=== PATIENT | female | born 1975 | race Caucasian/White ===

== ENCOUNTER 2017-06-04 17:02 | Emergency (ER) | payer MEDICAID ==
[~2017-06-04] VITALS: Ht 162.6 cm; Wt 105.2 kg
[~2017-06-04 17:02] MED LIST: COREG12.5 MG PO; LASIX20 MG PO; LOPRESSOR 50 MG50 MG PO; LORTAB 5/500 501 TAB PO; MOTRIN600 MG PO; NAPROSYN 500MG500 MG PO; PERCOCET 10 MG1 EACH PO; PHENERGAN 25MG.25 M1 PO; POTASSIUM CHLO10 ME3 PO; PROVERA10 MG PO; SYNTHROID0.112 MG PO; Tramadol HCl50 MG PO; VICODIN 5/500 T1 TAB PO
[2017-06-04] MEDS ORDERED: GABAPENTIN800 MG PO (17:50)
[2017-06-04] MEDS ORDERED: LISINOPRIL40 MG PO (17:50)
[2017-06-04] MEDS ORDERED: SUBOXONE 8 MG-21 FIL PO (17:51)
--- NOTE | 2017-06-04 18:00 | [facility] Report ---
History of Present Issue Date/Time Seen by Provider 06/04/17 8893 Visit Reason Pt arrived:Walked Presenting Problem:PT HAS SORES ON THE TOPS OF BOTH FEET BY 3-4 TOES. SHE HAS BEEN SEEN BY HER PCP SEVERAL TIMES. RT FOOT 4-5 MONTHS AND LT FOOT 2 WEEKS. SWELLING IN NOTED TO BOTH FEET AND LOWER LEG AREA. PT'S BP IS ELEVATED AND SHE STATES SHE WAS TO BUSY TO TAKE HER BP MEDS THIS AM. PT TOOK AM/PM JUST NOW. Location if Accident: Onset of symptoms date/time:/ or onset unknown for:MEDICAL HX UNKNOWN Have you (or family members/close friends) recently traveled outside the [place]? N If Yes, where/when: Have you had exposure to infectious disease within the past month? TB? Other? Specify: Patient state that she has been seen by family doctor several times for same complaint State that they gave her cream but she is worried that she may need an antibiotic State that she noticed that she has had sore on the top of her foot below her third toe on both feet State that she was worried that it may be getting infected so she came in to get her checked ALLERGIES Coded Allergies: MDX - Amoxicillin (Amoxicillin) (Severe, [id number]/THROAT 02/15/11) Converted from Generic Allergy: Amoxicillin Converted from Ingredient Allergy: Amoxicillin MDX - Penicillin (Penicillin) (Severe, O-[id number]-KMSN/THROAT 02/15/11) Converted from Drug Class Allergy: Penicillins Converted from Ingredient Allergy: Penicillins MDX - Cyclobenzaprine (From FLEXERIL) (Intermediate, I-ITCHING 01/29/11) MDX - Ketorolac (From TORADOL) (Intermediate, 10/18/11) MDX - Meloxicam (From MOBIC) (Intermediate, I-HIVES 03/10/11) MDX - Methocarbamol (From ROBAXIN) (Intermediate, I-HIVES 03/10/11) MDX - Naproxen (NAPROXEN) (Intermediate, 10/18/11) MDX - Tramadol (TRAMADOL) (Intermediate, 10/18/11) MDX - Morphine (MORPHINE) (03/17/11) Home Medications Reported Medications Lisinopril (Lisinopril 40MG) 40 MG PO BID Gabapentin (Gabapentin 800MG) 800 MG PO Q8 BUPRENORPHINE HCL/NALOXONE HCL (Suboxone 8 MG-2 MG Sl Film) 1 PO DAILY History Medical History General Angina: Yes MT: No Hypertension? Yes Hyperlipidemia? No CHF? No COPD? No Asthma? Yes Hernia? No CVA? No Seizures? No Diabetes? No UTI? No Stones? Yes GB Disease: No Hepatitis? No Cataracts? No Glaucoma? No MRSA? No TB? No Cancer? No Immunization HX DT/Tetanus > 10 YRS Flu NEVER Pneumonia NEVER Surgical Hx Previous Surgery?Y Tubal Ligation TEETH PULLED APPY ARTHROSCOPY L KNEE KNEE SURGERY D & C TRANSVERSE HYSTERECTOMY Family History Family HX Diabetes Yes CAD Yes Hypertension Yes Hyperlipidemia Yes Cancer Yes TB No Social History Smoking Hx Smoker: Current Every Day Smoker Tobacco: Yes Type Cigarettes Packs/day < 1 Pack Alcohol Alcohol: No Review of Systems All Other Systems Reviewed and Negative Comment pain and ulcerations on top of both feet that she has been recieving treatment from her regular PCP for for several months with cream and afraid they may be getting infected Physical Exam Vital Signs Vital Signs Date Time Temp Pulse Resp B/P Pulse O2 O2 Flow FiO2 Ox Delivery Rate 06/04 1743 98.2 76 20 200/130 96 General Appearance normal appearance, WD/WN, no apparent distress Respiratory Status Yes: trachea midline, chest symmetrical, non tender chest. No: respiratory distress. Lung Sounds bilateral: normal breath sounds, lungs clear. Cardiovascular normal exam, regular rate/rhythm Extremities swelling, two small open areas on top of bilateral feet, state that they have not been draining, feet swollen, mildly red good pulses, temp warm and dry Neurologic alert, normal exam, oriented x 3 Medical Decision Making LABS/Meds/Orders Pt receiving controlled substance in ED? No Results/Orders Current Medication Orders Sig/Andrés Start time Last Medication Dose Route Stop Time Status Admin Cephalexin 500 MG ONCE ONE 06/04 1815 DCr 06/04 Monohydrate PO 06/04 Cephalexin 0 .STK-MED ONE 06/04 1809 DC Monohydrate PO Progress UTC Progress Notes Comment Patient state that she is allergic to Penicillin and Amoxicillin however she is able to take Keflex with no reaction Departure Departure Time of Disposition 1809 Disposition DC Home or Self Care(routine) Clinical Impression Primary Impression: Skin problem Condition STABLE Referrals ALEXANDER HARVEY DPM Additional Instructions Call Dr Harvey office tomorrow and make appointment for tomorrow if possible Take medication as prescribed Continue to take medication as prescribed FOllow up with family doctor Make sure to take blood pressure medication as prescribed Return if needed Discharge Counseling Counseled pt/family regarding diagnosis, medications/RX, home care, follow up needs Prescriptions Current Visit Scripts CEPHALEXIN (Keflex 500MG Capsule) 500 MG PO QID #40 CAP at 3552
[2017-06-04] MEDS ORDERED: KEFLEX 500MG.500 MG PO (18:16)
[2017-06-04 18:20] VITALS: BP 181/107
== END 2017-06-04 18:21 | disposition home or self-care (01) ==
LOC: UTC 17:02
DX: R21 Rash and other nonspecific skin eruption (principal); I10 Essential (primary) hypertension; E78.5 Hyperlipidemia, unspecified; J45.909 Unspecified asthma, uncomplicated; F17.210 Nicotine dependence, cigarettes, uncomplicated